=== PATIENT | male | born 1990 | race African-American/Black ===

== ENCOUNTER 2016-07-15 19:05 | Emergency (ER) | payer SELFPAY ==
[~2016-07-15] VITALS: Ht 188 cm; Wt 127.0 kg
--- NOTE | 2016-07-15 20:05 | ED.ADGEN ---
Past Medical History Past Medical History: No Pertinent History Past Surgical History: No Surgical History Alcohol Use: Occasionally Drug Use: None Adult General Chief Complaint Chief Complaint: DIZZY/LIGHT HEADED HPI HPI Patient is a 25 year old -[place] male presents with dizziness and headache upon waking this running. Patient states he went [place] this [place] celebrating his anniversary. He denies any alcohol, but reports feeling dehydrated. Symptoms continued upon returning home this evening. Symptoms are worse with standing and walking. Patient also felt hot like he had a fever. Patient took Aleve prior to ED arrival with improvement of headache and subjective fever. He denies no known sick exposures. Denies sore throat, chills, sweats, cough, sore throat, palpitations and chest pain. He is not diabetic. Denies medical problems. No other acute symptoms or complaints. Patient's is accompanied at bedside by significant other. Review of Systems Review of Systems Review symptoms as per history of present illness. All other review symptoms are negative. Current Medications Current Medications Current Medications Medications (Trade) Dose Ordered Sig/Darnell Start Time Stop Time Status Last Admin Dose Admin Doxycycline Hyclate (Vibra-Tab) 100 mg 1X ONCE 07/15/16 21:15 07/15/16 21:16 DC 07/15/16 21:51 100 MG Sodium Chloride 1,000 ml @ 1,000 mls/hr 1X ONCE 07/15/16 20:15 07/15/16 21:14 DC 07/15/16 20:15 1,000 MLS/HR Allergies Allergies Allergies Coded Allergies Type Severity Reaction Last Updated Verified No Known Drug Allergies 07/15/16 No Physical Exam Physical Exam Constitutional: Well developed, well nourished, no acute distress, non-toxic appearance. HENT: Normocephalic, atraumatic, bilateral external ears normal, oropharynx moist, no oral exudates, nose normal. Eyes: PERRLA, EOMI, conjunctiva normal. Neck: Normal range of motion, no tenderness, supple, no stridor. Cardiovascular:Heart rate regular rhythm, no murmur. Lungs & Thorax: Bilateral breath sounds clear to auscultation. Abdomen: Bowel sounds normal, soft, no tenderness. Skin: Warm, dry. Back: No tenderness. Extremities: No tenderness. Neurologic: Alert and oriented X 3, normal motor function, normal sensory function, no focal deficits noted. Psychologic: Affect normal, judgement normal, mood normal. Current Patient Data Vital Signs Vital Signs Date Time Temp Pulse Resp B/P (MAP) Pulse Ox O2 Delivery O2 Flow Rate FiO2 07/15/16 21:30 94 129/65 (86) 99 Room Air 07/15/16 20:30 18 07/15/16 19:25 101.4 101.4 Lab Values Laboratory Tests Test 07/15/16 18:35 07/15/16 19:43 07/15/16 19:52 07/15/16 20:10 White Blood Count 16.5 x10^3/uL (4.0-11.0) H Red Blood Count 5.26 x10^6/uL (4.30-5.70) Hemoglobin 15.6 g/dL (13.0-17.5) Hematocrit 44.5 % (39.0-53.0) Mean Corpuscular Volume 85 fL (79-100) Mean Corpuscular Hemoglobin 30 pg (25-35) Mean Corpuscular Hemoglobin Concent 35 g/dL (31-37) Red Cell Distribution Width 13.4 % (11.5-14.5) Platelet Count 201 x10^3/uL (140-400) Neutrophils (%) (Auto) 84 % (31-73) H Lymphocytes (%) (Auto) 9 % (24-48) L Monocytes (%) (Auto) 7 % (0-9) Eosinophils (%) (Auto) 0 % (0-3) Basophils (%) (Auto) 0 % (0-3) Neutrophils # (Auto) 13.9 x10^3uL (1.8-7.7) H Lymphocytes # (Auto) 1.4 x10^3/uL (1.0-4.8) Monocytes # (Auto) 1.1 x10^3/uL (0.0-1.1) Eosinophils # (Auto) 0.0 x10^3/uL (0.0-0.7) Basophils # (Auto) 0.0 x10^3/uL (0.0-0.2) Segmented Neutrophils % 73 % (35-66) H Band Neutrophils % 12 % (0-9) H Lymphocytes % 13 % (24-48) L Monocytes % 2 % (0-10) Toxic Granulation Slight Platelet Estimate Adequate (ADEQUATE) Sodium Level 135 mmol/L (136-145) L Potassium Level 3.5 mmol/L (3.5-5.1) Chloride Level 100 mmol/L (98-107) Carbon Dioxide Level 27 mmol/L (21-32) Anion Gap 8 (6-14) Blood Urea Nitrogen 10 mg/dL (8-26) Creatinine 1.1 mg/dL (0.7-1.3) Estimated GFR (Cockcroft-Gault) 97.9 BUN/Creatinine Ratio 9 (6-20) Glucose Level 107 mg/dL (70-99) H Calcium Level 9.2 mg/dL (8.5-10.1) Total Bilirubin 0.6 mg/dL (0.2-1.0) Aspartate Amino Transferase (AST) 22 U/L (15-37) Alanine Aminotransferase (ALT) 37 U/L (16-63) Alkaline Phosphatase 65 U/L (46-116) Total Protein 7.6 g/dL (6.4-8.2) Albumin 3.9 g/dL (3.4-5.0) Albumin/Globulin Ratio 1.1 (1.0-1.7) Troponin I Quantitative < 0.017 ng/mL (0.000-0.055) Glucose (Fingerstick) 125 mg/dL (70-99) H Urine Opiates Screen Neg (NEG) Urine Methadone Screen Neg (NEG) Urine Barbiturates Neg (NEG) Urine Phencyclidine Screen Neg (NEG) Urine Amphetamine/Methamphetamine Neg (NEG) Urine Benzodiazepines Screen Neg (NEG) Urine Cocaine Screen Neg (NEG) Urine Cannabinoids Screen Neg (NEG) Urine Ethyl Alcohol Neg (NEG) Laboratory Tests 07/15/16 18:35 Laboratory Tests 07/15/16 18:35 EKG EKG [ED: Normal sinus rhythm with biphasic T waves in anterior leads] Radiology/Procedures Radiology/Procedures [Chest x-ray: Pulmonary infiltrates] Impressions: Fever, dizziness with pulmonary infiltrate consistent with pneumonic process Course & Med Decision Making Course & Med Decision Making Pertinent Labs and Imaging studies reviewed. (See chart for details) IV fluids and antibiotics given. Abnormal EKG, unrelated to today's presentation. Patient resting comfortably will discharge home with PCP follow- up further evaluation review of EKG. Dragon Disclaimer Dragon Disclaimer This electronic medical record was generated, in whole or in part, using a voice recognition dictation system. FRAN WALTERS DO July 15, 2016 20:05
[2016-07-15 20:14] LABS: BASO % 0 % (0-3); EOS % 0 % (0-3); HEMATOCRIT 44.5 % (39.0-53.0); HEMOGLOBIN 15.6 g/dL (13.0-17.5); LYMPH # 1.4 x10^3/uL (1.0-4.8); LYMPH % 9 % (24-48); MEAN CORPUSCULAR HEMOGLOBIN 30 pg (25-35); MEAN CORPUSCULAR HGB CONC 35 g/dL (31-37); MEAN CORPUSCULAR VOLUME 85 fL (79-100); MONO % 7 % (0-9); NEUT % 84 % (31-73); PLATELET COUNT 201 x10^3/uL (140-400); RED BLOOD COUNT 5.26 x10^6/uL (4.30-5.70); RED CELL DISTRIBUTION WIDTH 13.4 % (11.5-14.5); WHITE BLOOD COUNT 16.5 x10^3/uL (4.0-11.0)
[2016-07-15 20:15] LABS: CALCIUM 9.2 mg/dL (8.5-10.1); CREATININE 1.1 mg/dL (0.7-1.3); GFR 97.9; POTASSIUM 3.5 mmol/L (3.5-5.1)
[2016-07-15] MEDS ORDERED: IV NORMAL SALINE 1000ML BAG 1,000 ML IV ONE (20:15)
[2016-07-15 20:22] LABS: ALBUMIN 3.9 g/dL (3.4-5.0); ALBUMIN/GLOBULIN RATIO 1.1 (1.0-1.7); TOTAL BILIRUBIN 0.6 mg/dL (0.2-1.0); TOTAL PROTEIN 7.6 g/dL (6.4-8.2)
[2016-07-15 20:34] LABS: PLT ESTIMATE ADEQUATE (ADEQUATE); TOXIC GRANULATION SLIGHT
[2016-07-15 20:37] LABS: BARBITURATES NEG (NEG); BENZODIAZEPINES NEG (NEG); CANNABINOIDS NEG (NEG); COCAINE NEG (NEG); METHADONE NEG (NEG); OPIATES NEG (NEG); PHENCYCLIDINE NEG (NEG)
[2016-07-15] MEDS ORDERED: DOXYCYCLINE HYCLATE 100 MG TABLET PO ONE (21:15)
[2016-07-15 21:30] VITALS: BP 129/65
--- NOTE | 2016-07-16 08:37 | RAD ---
Indication fever and dizzy. PA and lateral views of the chest were obtained. No prior imaging is available. The heart and pulmonary vessels are normal. There is a parenchymal opacity in the right upper lobe which, in a 25-year-old, probably reflects pneumonia. Neoplastic disease cannot be excluded on the basis of imaging. Follow-up should be considered. The left lung is clear. There is no pleural fluid or pneumothorax. The findings were communicated to Dr. Gamez in the emergency room at the time of dictation. IMPRESSION: Probable right upper lobe pneumonia. See above discussion
--- NOTE | 2016-07-16 11:31 | EKG ---
[facility] [address] [place] [id number] Test Date: 2016-07-15 Test Time: 19:23:04 Pat Name: TOM MEYER Department: Room: Gender: M Grader Tender: : 1990 Requested By: FRAN WALTERS Order Number: [id number] Reading MD: Hailee Louise Measurements Intervals [place] Rate: 103 P: 44 MI: 152 QRS: 79 QRSD: 92 T: 22 QT: 336 QTc: 442 Interpretive Statements SINUS TACHYCARDIA T ABNORMALITY IN ANTERIOR LEADS ABNORMAL ECG RI6.01 No previous ECG available for comparison Electronically Signed On 07-16-2016 18:19:22 CDT by Hailee Louise
== END 2016-07-15 22:12 | disposition home or self-care (01) ==
LOC: ER 19:05
DX: R42 Dizziness and giddiness (principal); R51 Headache; E86.0 Dehydration; R50.9 Fever, unspecified
CPT/HCPCS: 36415; 71020; 80053; 80305; 82947; 84484; 85007; 85027; 93005; 96360; 99285; J7030; G0481